=== PATIENT | male | born 1965 | race Caucasian/White ===

== ENCOUNTER 2018-08-05 10:35 | Day surgery (SDC) | payer OTHER ==
[~2018-08-05] VITALS: Ht 193 cm; Wt 96.5 kg
[~2018-08-05 10:35] MED LIST: HYDACE5 PO; LISHYD1012 PO; MULVITMIND PO
--- NOTE | 2018-08-05 12:43 | NUR ---
08/05/18 1243 Yulia Serna WHEN PT. WAS IN SD AFTER HAVING A COLONOSCOPY, PT. VERBALIZED HAVING A BRUISE ON HIS LEFT MIDFOREARM. PT. VERBALIZED THAT IT WAS MAYBE FROM LAYING ON A CORD WHEN HE WAS ASLEEP. PT. INSTRUCTED THAT HE WASN'T LAYING ON ANY CORDS WITH HIS LEFT ARM. OBSERVED AN APPROX. QUARTER SIZE YELLOW MARKING ON HIS LEFT MIDFOREAM. PT. VERBALIZED IT BEING OK.
== END 2018-08-05 12:20 | disposition home or self-care (01) ==
LOC: ORSCSDS 10:35
PROVIDERS: Internal Medicine Gastroenterology
PROC: 0DBK8ZX Excision of Ascending Colon, Via Natural or Artificial Opening Endoscopic, Diagnostic (ICD-10-PCS; principal; 2018-08-05 12:00)
PROC: 0DBH8ZX Excision of Cecum, Via Natural or Artificial Opening Endoscopic, Diagnostic (ICD-10-PCS; principal; 2018-08-05 12:00)
DX: Z12.11 Encounter for screening for malignant neoplasm of colon (principal); D12.0 Benign neoplasm of cecum; D12.2 Benign neoplasm of ascending colon; K64.8 Other hemorrhoids; I10 Essential (primary) hypertension; F43.23 Adjustment disorder with mixed anxiety and depressed mood; Z79.899 Other long term (current) drug therapy
CPT/HCPCS: 88305; J7120

== ENCOUNTER → 2018-09-06 | Outpatient (CLI) | payer OTHER | END | disposition home or self-care (01) | LOC: PLD 08:14 → LAB SHORT 08:14 | DX: D18.01 Hemangioma of skin and subcutaneous tissue (principal); D22.5 Melanocytic nevi of trunk | CPT/HCPCS: 88305 ==